=== PATIENT | male | born 1985 | race Caucasian/White ===

== ENCOUNTER → 2017-03-21 | Outpatient (REF) | payer OTHER ==
[2017-03-21 20:37] LABS: INFLUENZA A AMPLIFICATION POSITIVE (NEGATIVE); INFLUENZA B AMPLIFICATION NEGATIVE (NEGATIVE); RSV AMPLIFICATION NEGATIVE (NEGATIVE)
== END ==
LOC: M LAB REF 19:43
DX: J10.1 Influenza due to other identified influenza virus with other respiratory manifestations (principal)
CPT/HCPCS: 87631

== ENCOUNTER 2017-06-10 13:30 | Inpatient (IN) | payer OTHER ==
[~2017-06-10 13:30] MED LIST: NALOXONE INJ 2 MG/2 ML SYRINGE (J2310) As Ordered
[2017-06-10] MEDS ORDERED: NALOXONE INJ 0.4 MG/1 ML VIAL (J2310) IV (13:45)
[2017-06-10] MEDS: NALOXONE INJ 2 MG/2 ML SYRINGE (J2310) IV (13:45)
[2017-06-10 13:52] LABS: BASO # 0.1 10^3/uL (0.0-0.2); BASO % 0.3 % (0.0-1.0); HEMATOCRIT 51.5 % (42.0-52.0); HEMOGLOBIN 17.7 g/dl (13.5-17.5); IMMATURE GRANULOCYTE % 1.7 % (0-3.0); LYMPH # 1.8 10^3/uL (1.5-4.5); LYMPH % 5.7 % (24.0-44.0); MEAN CORPUSCULAR HEMOGLOBIN 30.1 pg (27.0-33.0); MEAN CORPUSCULAR HGB CONC 34.4 g/dl (32.0-36.5); MEAN CORPUSCULAR VOLUME 87.4 fl (80.0-96.0); MONO % 8.3 % (0.0-5.0); PLATELET COUNT, AUTOMATED 304 10^3/uL (150-450); RED BLOOD COUNT 5.89 10^6/uL (4.30-6.10); RED CELL DISTRIBUTION WIDTH 12.2 % (11.5-14.5)
[2017-06-10] MEDS: NS 1,000 ML IV ×3 (13:58→15:59)
[2017-06-10] MEDS: ETOMIDATE INJ 20MG/10ML VIAL IV (13:58)
[2017-06-10] MEDS: SUCCINYLCHOLINE INJ 200 MG/10 ML VIAL (J0330) IV (13:58)
[2017-06-10] MEDS: LIDOCAINE 2% INJ 100 MG/5 ML SYRINGE IV (13:58)
[2017-06-10 14:13] LABS: MONO # 2.6 10^3/uL (0.0-0.8); NEUTROPHILS # 26.9 10^3/uL (1.8-7.7); POSITIVE DIFF POS FLAG
[2017-06-10 14:14] LABS: ALBUMIN 4.4 GM/DL (3.2-5.2); ALKALINE PHOSPHATASE 143 U/L (45-117); ALT/SGPT 38 U/L (12-78); ANION GAP 9 MEQ/L (8-16); AST/SGOT 40 U/L (7-37); BILIRUBIN,DIRECT 0.2 MG/DL (0.0-0.2); BILIRUBIN,TOTAL 0.5 MG/DL (0.2-1.0); BLOOD UREA NITROGEN 25 MG/DL (7-18); CALCIUM LEVEL 8.4 MG/DL (8.5-10.1); CARBON DIOXIDE LEVEL 27 MEQ/L (21-32); CHLORIDE LEVEL 103 MEQ/L (98-107); CPK CREATINE PHOSPHOKINASE 180 U/L (39-308); GLOMERULAR FILTRATION RATE 37.4 (>60); GLUCOSE, FASTING 90 MG/DL (70-100); POS COUNT POS FLAG; SALICYLATE LEVEL < 1.7 MG/DL (5.0-30.0); SODIUM LEVEL 139 MEQ/L (136-145); TOTAL PROTEIN 8.4 GM/DL (6.4-8.2); TROPONIN I 0.44 NG/ML (< 0.10)
[2017-06-10 14:15] LABS: ADD MORPHOLOGY? YES; POSITIVE MORPH N
[2017-06-10] MEDS ORDERED: FLUID PLACE HOLDER IV (14:15)
[2017-06-10] MEDS ORDERED: VANCOMYCIN HCL IV (14:15)
[2017-06-10 14:16] LABS: GIANT PLATELETS 1+; PLATELET CLUMPS SMALL AMT
[2017-06-10 14:17] LABS: PLATELET ESTIMATE NORMAL (NORMAL)
[2017-06-10 14:20] LABS: AMPHETAMINES LEVEL URINE NEGATIVE (NEGATIVE); BARBITURATES URINE NEGATIVE (NEGATIVE); BENZODIAZEPINES URINE NEGATIVE (NEGATIVE); CANNABINOIDS URINE NEGATIVE (NEGATIVE); CK-MB VALUE MASS 6.8 NG/ML (<3.6); COCAINE METABOLITE URINE NEGATIVE (NEGATIVE); MB/CK RELATIVE INDEX 3.77 (< OR =4); METHADONE URINE NEGATIVE (NEGATIVE); OPIATES URINE POSITIVE (NEGATIVE); PHENCYCLIDINE URINE NEGATIVE (NEGATIVE)
[2017-06-10] MEDS ORDERED: PROPOFOL 1,000 MG/100 ML VIAL As Ordered (14:23)
[2017-06-10] MEDS: MIDAZOLAM INJ 5 MG/ML VIAL (J2250) IV (14:24)
[2017-06-10 14:25] LABS: POTASSIUM SERUM 5.2 MEQ/L (3.5-5.1)
[2017-06-10 14:26] LABS: ACETAMINOPHEN LEVEL < 2.0 UG/ML (10.0-30.0); ETHYL ALCOHOL (ETHANOL) < 0.003 % (0.000-0.010)
[2017-06-10] MEDS: PROPOFOL 1,000 MG in APPROPRIATE DILUENT 1 EA IV ×2 (14:33→16:10)
[2017-06-10 14:47] LABS: ABG BASE EXCESS -7.1 (-2.0-2.0); ABG HCO3 18.9 MEQ/L (22.0-26.0); ABG O2 SATURATION 92.1 % (95.0-99.0); ABG PARTIAL PRESSURE CO2 39.9 mmHg (35.0-45.0); ABG STANDARD HCO3 18.7 MEQ/L (22.0-26.0); ABG TOTAL CO2 20.2 MEQ/L (22.0-29.0); ABG pH (ARTERIAL) 7.294 UNITS (7.350-7.450)
[2017-06-10] MEDS: PIPERACILLIN/TAZOBACTAM SOD 4.5 GM in D5W MINI-BAG PLUS 50 ML IV (14:54)
[2017-06-10 15:46] LABS: LACTIC ACID SEPSIS PROTOCOL 4.4 MMOL/L (0.4-2.0)
[2017-06-10 15:52] LABS: ABG BASE EXCESS -9.4 (-2.0-2.0); ABG HCO3 15.6 MEQ/L (22.0-26.0); ABG O2 SATURATION 95.5 % (95.0-99.0); ABG PARTIAL PRESSURE CO2 32.1 mmHg (35.0-45.0); ABG PARTIAL PRESSURE O2 82.4 mmHg (75.0-100.0); ABG STANDARD HCO3 17.1 MEQ/L (22.0-26.0); ABG TOTAL CO2 16.6 MEQ/L (22.0-29.0); ABG pH (ARTERIAL) 7.305 UNITS (7.350-7.450)
[2017-06-10] MEDS: PANTOPRAZOLE 40MG INJ (PROTONIX) (C9113) IV (15:55)
[2017-06-10] MEDS: VANCOMYCIN HCL 1,000 MG, VIAL MATE ADAPTER 1 EACH in D5W 250 ML IV ×2 (15:55→17:05)
[2017-06-10] MEDS: IPRATROPIUM 0.5MG/ALBUTEROL 2.5MG INH SOL UD 3ML (DUONEB)(J7620) NEB ×2 (16:00→20:02)
[2017-06-10] MEDS: D5W/0.9% SODIUM CHLORIDE 1,000 ML IV (16:02)
[2017-06-10] MEDS ORDERED: METAL LOCK LOOP XX (16:48)
[2017-06-10] MEDS: MIDAZOLAM INJ 2 MG/2 ML VIAL (J2250) IV ×6 (17:18→23:37)
[2017-06-10] MEDS: SODIUM CHLORIDE 3% 500 ML IV (20:21)
[2017-06-10] MEDS: MORPHINE 4 MG/ML 1ML VIAL/SYRINGE (J2270) IV (20:56)
[2017-06-10] MEDS: CHLORHEXIDINE ORAL RINSE 0.12%/15ML 120ML BOTTLE MT (21:41)
[2017-06-10] MEDS: HEPARIN SOD (PORCINE) 5000 UNITS/ML VIAL SC (21:42)
[2017-06-11 00:09] LABS: ANION GAP 7 MEQ/L (8-16); BLOOD UREA NITROGEN 20 MG/DL (7-18); CALCIUM LEVEL 7.1 MG/DL (8.5-10.1); CARBON DIOXIDE LEVEL 23 MEQ/L (21-32); CHLORIDE LEVEL 113 MEQ/L (98-107); CREATININE FOR GFR 1.38 MG/DL (0.70-1.30); GLOMERULAR FILTRATION RATE > 60.0 (>60); GLUCOSE, FASTING 106 MG/DL (70-100); POTASSIUM SERUM 3.8 MEQ/L (3.5-5.1); SODIUM LEVEL 143 MEQ/L (136-145)
[2017-06-11] MEDS: MORPHINE 4 MG/ML 1ML VIAL/SYRINGE (J2270) IV ×2 (00:41→14:57)
[2017-06-11] MEDS ORDERED: PHENYLEPHRINE INJ 10MG/ML VIAL (J2370) As Ordered ×2 (01:39→12:08)
[2017-06-11] MEDS: MIDAZOLAM INJ 2 MG/2 ML VIAL (J2250) IV ×8 (02:20→14:56)
[2017-06-11] MEDS: PHENYLEPHRINE HCL INJ 50 MG in D5W 500 ML IV (02:49)
[2017-06-11] MEDS ORDERED: PHENYTOIN 100 MG/2 ML VIAL (J1165) As Ordered (04:19)
[2017-06-11] MEDS ORDERED: PHENYTOIN INJ 250 MG/5 ML VIAL (J1165) As Ordered (04:26)
[2017-06-11] MEDS: PHENYTOIN INJection 1,000 MG in NS 100 ML IV (04:30)
[2017-06-11 04:54] LABS: BASO # 0.1 10^3/uL (0.0-0.2); BASO % 0.2 % (0.0-1.0); HEMATOCRIT 45.1 % (42.0-52.0); IMMATURE GRANULOCYTE % 0.7 % (0-3.0); LYMPH # 1.3 10^3/uL (1.5-4.5); LYMPH % 5.3 % (24.0-44.0); MEAN CORPUSCULAR HEMOGLOBIN 30.2 pg (27.0-33.0); MEAN CORPUSCULAR HGB CONC 34.6 g/dl (32.0-36.5); MEAN CORPUSCULAR VOLUME 87.2 fl (80.0-96.0); MONO # 1.3 10^3/uL (0.0-0.8); MONO % 5.1 % (0.0-5.0); NEUTROPHILS # 22.2 10^3/uL (1.8-7.7); NEUTROPHILS % 88.7 % (36.0-66.0); RED BLOOD COUNT 5.17 10^6/uL (4.30-6.10); RED CELL DISTRIBUTION WIDTH 12.6 % (11.5-14.5); WHITE BLOOD COUNT 25.1 10^3/uL (4.0-10.0)
[2017-06-11 05:08] LABS: HEMOGLOBIN 15.6 g/dl (13.5-17.5); PLATELET COUNT, AUTOMATED 190 10^3/uL (150-450)
[2017-06-11 05:14] LABS: ALBUMIN 2.7 GM/DL (3.2-5.2); ALBUMIN/GLOBULIN RATIO 0.75 (1.00-1.93); ALKALINE PHOSPHATASE 92 U/L (45-117); ALT/SGPT 43 U/L (12-78); ANION GAP 8 MEQ/L (8-16); AST/SGOT 116 U/L (7-37); BILIRUBIN,TOTAL 1.2 MG/DL (0.2-1.0); BLOOD UREA NITROGEN 17 MG/DL (7-18); CARBON DIOXIDE LEVEL 20 MEQ/L (21-32); CHLORIDE LEVEL 115 MEQ/L (98-107); CHOLESTEROL LEVEL 59 MG/DL (< 200); CREATININE FOR GFR 1.22 MG/DL (0.70-1.30); GLOMERULAR FILTRATION RATE > 60.0 (>60); GLUCOSE, FASTING 110 MG/DL (70-100); LDH LACTATE DEHYDROGENASE 401 U/L (87-241); PHOSPHORUS LEVEL 2.2 MG/DL (2.5-4.9); POTASSIUM SERUM 4.1 MEQ/L (3.5-5.1); SODIUM LEVEL 143 MEQ/L (136-145); TOTAL PROTEIN 6.3 GM/DL (6.4-8.2); TRIGLYCERIDES LEVEL 62 MG/DL (<150)
[2017-06-11 05:51] LABS: ABG BASE EXCESS -4.8 (-2.0-2.0); ABG PARTIAL PRESSURE CO2 32.1 mmHg (35.0-45.0); ABG PARTIAL PRESSURE O2 62.8 mmHg (75.0-100.0); ABG STANDARD HCO3 20.5 MEQ/L (22.0-26.0)
[2017-06-11 05:53] LABS: CPK CREATINE PHOSPHOKINASE 6172 U/L (39-308)
[2017-06-11] MEDS: D5W/0.9% SODIUM CHLORIDE 1,000 ML IV (05:57)
[2017-06-11] MEDS: HEPARIN SOD (PORCINE) 5000 UNITS/ML VIAL SC ×3 (05:57→22:00)
[2017-06-11] MEDS: IPRATROPIUM 0.5MG/ALBUTEROL 2.5MG INH SOL UD 3ML (DUONEB)(J7620) NEB ×4 (07:49→20:35)
[2017-06-11 09:36] LABS: INR 1.37; PROTHROMBIN TIME 17.2 SECONDS (12.4-14.5)
[2017-06-11] MEDS: cefTRIAXone SOD 1 GM in D5W MINI-BAG PLUS 50 ML IV (10:00)
[2017-06-11] MEDS: PANTOPRAZOLE 40MG INJ (PROTONIX) (C9113) IV (10:01)
[2017-06-11] MEDS: CHLORHEXIDINE ORAL RINSE 0.12%/15ML 120ML BOTTLE MT ×2 (10:01→21:00)
[2017-06-11] MEDS: PHENYLEPHRINE INJ 10MG/ML VIAL (J2370) IV (12:30)
[2017-06-11] MEDS ORDERED: PROHANCE 279.3MG/ML 15ML VIAL (A9576) As Ordered (12:54)
[2017-06-11] MEDS ORDERED: PROHANCE 279.3MG/ML 5ML VIAL (A9576) As Ordered (12:54)
[2017-06-11 14:27] LABS: ANION GAP 6 MEQ/L (8-16); BLOOD UREA NITROGEN 11 MG/DL (7-18); CALCIUM LEVEL 7.3 MG/DL (8.5-10.1); CARBON DIOXIDE LEVEL 24 MEQ/L (21-32); CHLORIDE LEVEL 112 MEQ/L (98-107); CREATININE FOR GFR 1.06 MG/DL (0.70-1.30); GLOMERULAR FILTRATION RATE > 60.0 (>60); GLUCOSE, FASTING 122 MG/DL (70-100); POTASSIUM SERUM 3.6 MEQ/L (3.5-5.1); SODIUM LEVEL 142 MEQ/L (136-145)
[2017-06-11] MEDS ORDERED: FUROSEMIDE 40 MG/4 ML VIAL (J1940) IV (14:30)
[2017-06-11] MEDS ORDERED: FUROSEMIDE 40 MG/4 ML VIAL (J1940) As Ordered (14:30)
[2017-06-11] MEDS: FUROSEMIDE 40 MG/4 ML VIAL (J1940) IV (14:30)
[2017-06-11] MEDS: SODIUM CHLORIDE 3% 500 ML IV (14:35)
[2017-06-11] MEDS ORDERED: LIDOCAINE 1% MDV 20ML VIAL (14:48)
[2017-06-11] MEDS ORDERED: SUCCINYLCHOLINE 100 MG/5 ML SYRINGE (J0330) (14:48)
[2017-06-11] MEDS ORDERED: ETOMIDATE INJ 20MG/10ML VIAL (14:48)
[2017-06-11] MEDS ORDERED: REFRIGERATOR IV KEYS XX (15:15)
[2017-06-11] MEDS: MIDAZOLAM HCL 100 MG in D5W 80 ML IV (15:39)
[2017-06-11] MEDS: levETIRAcetam INJection 1,000 MG in D5W 100 ML IV (15:44)
[2017-06-11 15:50] LABS: PHENYTOIN (DILANTIN) 8.3 UG/ML (10.0-20.0)
[2017-06-11 16:38] LABS: ABG BASE EXCESS -2.3 (-2.0-2.0); ABG HCO3 21.8 MEQ/L (22.0-26.0); ABG O2 SATURATION 75.9 % (95.0-99.0); ABG PARTIAL PRESSURE CO2 35.7 mmHg (35.0-45.0); ABG TOTAL CO2 22.9 MEQ/L (22.0-29.0); ABG pH (ARTERIAL) 7.403 UNITS (7.350-7.450)
[2017-06-11 16:40] LABS: ABG PARTIAL PRESSURE O2 38.3 mmHg (75.0-100.0)
[2017-06-11 19:13] LABS: ANION GAP 13 MEQ/L (8-16); BLOOD UREA NITROGEN 11 MG/DL (7-18); CALCIUM LEVEL 7.7 MG/DL (8.5-10.1); CARBON DIOXIDE LEVEL 22 MEQ/L (21-32); CHLORIDE LEVEL 110 MEQ/L (98-107); CREATININE FOR GFR 1.13 MG/DL (0.70-1.30); GLOMERULAR FILTRATION RATE > 60.0 (>60); GLUCOSE, FASTING 85 MG/DL (70-100); POTASSIUM SERUM 3.8 MEQ/L (3.5-5.1); SODIUM LEVEL 145 MEQ/L (136-145)
[2017-06-12] MEDS: MORPHINE 4 MG/ML 1ML VIAL/SYRINGE (J2270) IV ×3 (00:01→01:06)
[2017-06-12] MEDS ORDERED: levETIRAcetam INJection 1,000 MG in D5W 100 ML IV (04:00)
== END 2017-06-12 02:50 | disposition expired | DRG 812 ==
LOC: M ED 13:30 → M ED INP 15:03 → M ICU 16:36
PROC: 5A1945Z Respiratory Ventilation, 24-96 Consecutive Hours (ICD-10-PCS; principal; 2017-06-10)
PROC: 02HV33Z Insertion of Infusion Device into Superior Vena Cava, Percutaneous Approach (ICD-10-PCS; 2017-06-11)
DX: T40.604A Poisoning by unspecified narcotics, undetermined, initial encounter (principal); R57.1 Hypovolemic shock; J96.01 Acute respiratory failure with hypoxia; G93.6 Cerebral edema; J69.0 Pneumonitis due to inhalation of food and vomit; G93.41 Metabolic encephalopathy; R56.9 Unspecified convulsions; M62.82 Rhabdomyolysis; N17.9 Acute kidney failure, unspecified; I67.82 Cerebral ischemia; I95.9 Hypotension, unspecified; J93.9 Pneumothorax, unspecified; K21.9 Gastro-esophageal reflux disease without esophagitis; J45.909 Unspecified asthma, uncomplicated; Z88.2 Allergy status to sulfonamides